=== PATIENT | female | born 1980 | race Caucasian/White ===

== ENCOUNTER → 2020-01-06 07:27 | Outpatient (CLI) | payer BC, OTHER, SELFPAY ==
--- NOTE | ~2020-01-06 | MR_ITS ---
EXAMINATION: MR shoulder LT wo con DATE: 01/06/2020 08:47 INDICATION: Labral tear. Rotator cuff tear. Left shoulder pain and inability to raise the arm. TECHNIQUE: Magnetic resonance imaging (MRI) of the left shoulder was performed without intravenous co ntrast. Sequences included axial PD-weighted FS FSE, coronal oblique PD-weighted FS FSE, coronal obli que T2-weighted FS FSE, sagittal PD-weighted FS FSE, and sagittal T1-weighted SE. COMPARISON: None. FINDINGS: Coracoacromial arch: The acromion undersurface is curved in morphology (type II). The coracoacromial ligament is normal. A cromioclavicular joint is normal. Rotator cuff: The supraspinatus, infraspinatus and teres minor tendons are normal. The subscapularis tendon is norm al. Normal rotator cuff muscle bulk and signal. Biceps tendon, glenoid labrum and glenohumeral cartilage: Long head of the biceps tendon is normal. There is a tear at the posterosuperior glenoid labrum which appears diminutive with irregular frayed tissue. There is deep chondral ulceration extending from th e apex to the superomedial aspect of the humeral head which involves greater than 50% the cartilage t hickness. There is linear increased signal consistent with delamination extending up to 2 mm inferome dially likely along the bone chondral interface at the margin of the region of ulceration. The glenoi d cartilage appears relatively preserved. There are low signal intensity likely loose bodies which co uld represent displaced cartilage tissue, one measuring 8 x 5 x 4 mm at the axillary recess and secon d measuring 5 x 4 x 3 mm along the superomedial aspect of the glenoid at the entrance to the deep sub scapular recess. Fluid: Physiologic amount of fluid in the glenohumeral joint and biceps tendon sheath. Mild synovitis seen a t the axillary recess. No abnormal fluid signal in the subacromial/subdeltoid bursa to suggest bursi tis. Bones: Bone alignment is normal. No fracture or pathologic marrow replacing process. Mild cystic change at t he posterior aspect of the greater tuberosity. IMPRESSION: 1. 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 2. Degenerative tearing at the posterior superior glenoid labrum. 3. Couple loose bodies at the axillary recess and entrance to the deep subscapular recess which may h ave arisen from displaced cartilage fragment. Reviewed, dictated and finalized at location B. IMPRESSION: 1. Mild glenohumeral osteoarthritis with extensive moderate grade chondromalaci a occluding small amount of lamination at or near the bone chondral interface a t the margin of a region of deep ulceration without degenerative subarticular c hanges at the apex to superomedial aspect of the humeral head. 2. Degenerative tearing at the posterior superior glenoid labrum. 3. Couple loose bodies at the axillary recess and entrance to the deep subscapu lar recess which may have arisen from displaced cartilage fragment.
== END ==
PROVIDERS: PCP Physician Assistant Medical; Visit Provider Chiropractor
DX: S43.432A Superior glenoid labrum lesion of left shoulder, initial encounter (principal); M19.012 Primary osteoarthritis, left shoulder; M94.212 Chondromalacia, left shoulder; M24.012 Loose body in left shoulder
CPT/HCPCS: 73221

== ENCOUNTER 2024-03-31 14:29 | Outpatient (CLI) | payer BC, OTHER, SELFPAY ==
--- NOTE | ~2024-03-31 | MM_ITS ---
EXAMINATION: MM screening kayley BI w edgardo HISTORY: Screening TECHNIQUE: Craniocaudal and mediolateral oblique 3-D tomosynthesis images were obtained and synthetic 2-D images were generated. CAD analysis was submitted and interpreted. COMPARISON: No prior mammogram is available for comparison at this institution. BREAST PARENCHYMAL COMPOSITION: Not dense: There are scattered areas of fibroglandular density. FINDINGS: There is a mass in the lower inner quadrant of the right breast, middle-posterior depth. Th ere is a low-density mass in the central aspect of the left breast, middle third. There are no suspic ious calcifications or architectural distortion. IMPRESSION: 1. Bilateral breast masses. 2. . Additional spot compression and mediolateral views with possible follow-up breast ultrasound rec ommended. BI-RADS Category 0: Incomplete: Needs additional imaging evaluation. Reviewed, dictated and finalized at location B. TRICAL SIGN WIRER HELPER IMPRESSION: 1. Bilateral breast masses. 2. . Additional spot compression and mediolateral views with possible follow-up breast ultrasound recommended. BI-RADS Category 0: Incomplete: Needs additional imaging evaluation.
== END 2024-03-31 14:30 | disposition home or self-care (01) ==
PROVIDERS: PCP Physician Assistant Medical; Visit Provider Physician Assistant Medical
DX: Z12.31 Encounter for screening mammogram for malignant neoplasm of breast (principal); R92.8 Other abnormal and inconclusive findings on diagnostic imaging of breast
CPT/HCPCS: 77063; 77067

== ENCOUNTER 2024-04-09 09:49 | Outpatient (CLI) | payer BC, OTHER, SELFPAY ==
--- NOTE | ~2024-04-09 | MMUS_ITS ---
EXAMINATION: MM diagnostic kayley BI w edgardo, US breast BI limited HISTORY: Bilateral breast masses TECHNIQUE: Additional 3-D tomosynthesis images of the breasts were performed and synthetic 2-D images were generated. CAD analysis was submitted and interpreted. High resolution limited bilateral breast ultrasound was performed. COMPARISON: 03/31/2024 BREAST PARENCHYMAL COMPOSITION:Not Dense. There are scattered areas of fibroglandular density. FINDINGS: MAMMOGRAPHIC FINDINGS: Spot compression views demonstrate a persistent low-density 2 cm ovoid mass at the inner, slightly lo wer right breast. Spot compression views also confirm a 13 mm ovoid mass at the central left breast m iddle third. ULTRASOUND: At the 3:00 position right breast, 5 cm from the nipple, there is a 1.8 x 1.7 x 1.1 cm mass which is wider than tall, but with very heterogeneous internal echogenicity. There is a similar appearing mass at the right subareolar region, measuring 1.1 x 0.7 x 1.0 cm. At the left breast subareolar region, there is a similar-appearing 1.0 x 1.0 x 0.5 cm ovoid, circumsc ribed, wider than tall mass with internal heterogeneous appearance. At the left breast obliteration t here is an additional 0.4 cm ovoid circumscribed mass. There is an additional 0.5 cm circumscribed ov oid wider than tall mass at the left subareolar region as well. IMPRESSION: Multiple bilateral breast masses, as above. Though the echogenicity of the lesions is heterogeneous, lesions overall are wider than tall and circumscribed, and given the multiplicity and bilaterally, a re most compatible with probable benign findings. Six-month follow-up mammogram and ultrasound recomm ended to reassess. BI-RADS category 3, probably benign findings. Reviewed, dictated and finalized at location M. R SUPERVISOR IMPRESSION: Multiple bilateral breast masses, as above. Though the echogenicity of the les ions is heterogeneous, lesions overall are wider than tall and circumscribed, a nd given the multiplicity and bilaterally, are most compatible with probable be nign findings. Six-month follow-up mammogram and ultrasound recommended to reas alejandras. BI-RADS category 3, probably benign findings. IMPRESSION: Multiple bilateral breast masses, as above. Though the echogenicity of the les ions is heterogeneous, lesions overall are wider than tall and circumscribed, a nd given the multiplicity and bilaterally, are most compatible with probable be nign findings. Six-month follow-up mammogram and ultrasound recommended to netta schaefer. BI-RADS category 3, probably benign findings.
== END 2024-04-09 09:50 | disposition home or self-care (01) ==
LOC: CHSIMG 09:50
PROVIDERS: PCP Physician Assistant Medical; Visit Provider Physician Assistant Medical
DX: R92.8 Other abnormal and inconclusive findings on diagnostic imaging of breast (principal)
CPT/HCPCS: 76642; 77062; 77066; G0279